=== PATIENT | male | born 1990 | race Caucasian/White ===

== ENCOUNTER 2020-06-05 13:12 | Observation (INO) ==
[2020-06-05] MEDS ORDERED: ONDANSETRON 4 MG/2 ML VIAL ONE (13:37)
[2020-06-05] MEDS ORDERED: KETOROLAC 30 MG/1 ML VIAL ONE (13:37)
[2020-06-05] MEDS ORDERED: HYDROmorphone 2 MG/1 ML VIAL ONE (13:37)
[2020-06-05] MEDS ORDERED: SODIUM CHLORIDE 0.9% 1,000 ML IV STA (13:52)
[2020-06-05] MEDS ORDERED: HYDROmorphone 2 MG/1 ML VIAL IV STA (13:52)
[2020-06-05] MEDS ORDERED: ONDANSETRON 4 MG/2 ML VIAL IV STA (13:52)
[2020-06-05] MEDS ORDERED: KETOROLAC 30 MG/1 ML VIAL IV STA (13:52)
[2020-06-05] MEDS ORDERED: PROMETHAZINE 25 MG/1 ML VIAL IM PRN (14:11)
[2020-06-05] MEDS ORDERED: ACETAMINOPHEN 325 MG TABLET PO PRN (14:11)
[2020-06-05] MEDS ORDERED: HYDROmorphone 2 MG/1 ML VIAL IV PRN (14:11)
[2020-06-05] MEDS ORDERED: ONDANSETRON 4 MG/2 ML VIAL IV PRN (14:11)
[2020-06-05] MEDS: SODIUM CHLORIDE 0.9% 1,000 ML IV SCH ×2 (15:37→22:33)
[2020-06-05 15:40] LABS: Calcium 8.6 MG/DL (8.5-10.1)
[2020-06-05 15:54] LABS: Basophils % 0.2 % (0.0-0.8); Eosinophils # 0.1 10*3/uL (0.0-0.87); Eosinophils % 0.7 % (0.00-10.9); Hematocrit 38.3 VOL% (42.0-52.0); Immature Granulocytes % 0.6 %; Immature Granulocytes Absolute 0.07 #; Lymphocytes # 1.2 10*3/uL (1.4-4.0); Mean Corpuscular HGB Conc 33.9 GM/DL (32-36); Mean Corpuscular Volume 93.9 FL (87-102); Mean Platelet Volume 9.6 FL (9.6-12.0); Monocytes % 6.7 % (1.7-12.7); Neutrophils % 81.8 % (38.7-73.9); Platelet Count 222 T/CUMM (130-400); Red Blood Count 4.08 MC/CUMM (3.8-5.5); Red Cell Distribution Width 11.8 % (9.3-17.3); White Blood Count 11.8 T/CUMM (4-12)
[2020-06-05] MEDS: OXYBUTYNIN 5 MG TABLET PO PRN (17:09)
[2020-06-05] MEDS: HYDROmorphone 2 MG/1 ML VIAL IV PRN ×2 (17:09→23:07)
[2020-06-05] MEDS: KETOROLAC 30 MG/1 ML VIAL IV SCH (19:43)
[2020-06-06] MEDS: KETOROLAC 30 MG/1 ML VIAL IV SCH ×4 (01:47→21:05)
[2020-06-06] MEDS: SODIUM CHLORIDE 0.9% 1,000 ML IV SCH ×3 (05:01→21:05)
[2020-06-06] MEDS: HYDROmorphone 2 MG/1 ML VIAL IV PRN ×5 (06:10→15:20)
[2020-06-06] MEDS: oxyCODONE/ACETAMINOPHEN 5-325 MG TABLET PO PRN ×3 (09:31→22:04)
[2020-06-06] MEDS ORDERED: LIDOCAINE 2% TOP JELLY 20 ML VIAL INTRAURETH ONE ×2 (13:07→14:03)
[2020-06-06] MEDS ORDERED: MIDAZOLAM 2 MG/2 ML VIAL ONE (14:00)
[2020-06-06] MEDS ORDERED: propofoL 200 MG/20 ML VIAL IV ONE ×2 (14:00→14:35)
[2020-06-06] MEDS ORDERED: LIDOCAINE 2% 5 ML VIAL ONE (14:00)
[2020-06-06] MEDS ORDERED: fentaNYL 100 MCG/2 ML VIAL ONE (14:01)
[2020-06-06] MEDS ORDERED: LACTATED RINGERS 1,000 ML IV SCH (14:30)
[2020-06-06] MEDS ORDERED: ONDANSETRON 4 MG/2 ML VIAL IV PRN (14:54)
[2020-06-06] MEDS: OXYBUTYNIN 5 MG TABLET PO PRN (17:36)
[2020-06-07] MEDS: KETOROLAC 30 MG/1 ML VIAL IV SCH ×2 (02:18→08:41)
[2020-06-07] MEDS: oxyCODONE/ACETAMINOPHEN 5-325 MG TABLET PO PRN (02:20)
[2020-06-07] MEDS: SODIUM CHLORIDE 0.9% 1,000 ML IV SCH ×2 (08:41→11:29)
[2020-06-07 12:42] VITALS: BP 135/73
== END 2020-06-07 12:50 | disposition home or self-care (01) ==
LOC: N.ED 13:12 → N.EDINP 13:12 → N.5E 15:14
PROVIDERS: ADMIT Surgery; ATTEND Surgery